=== PATIENT | male | born 1965 | race American Indian/Alaskan Native ===

== ENCOUNTER 2019-12-08 19:11 | Emergency (ER) | payer SELFPAY ==
--- NOTE | 2019-12-08 21:40 | Event Note ---
ED Screening Note Date of service: 12/08/19 Time: 21:33 ED Screening Note: This is 54 y.o. M. that presents to the ER with bilateral leg cramps for 2 days. PMH of HTN and brain aneurysm Currently taking amlodipine, labetalol, and atorvastatin Current cigarette and marijuana smoker. This initial assessment/diagnostic orders/clinical plan/treatment(s) is/are subject to change based on patients health status, clinical progression and re- assessment by fellow clinical providers in the ED. Further treatment and workup at subsequent clinical providers discretion. Patient/guardian urged not to elope from the ED as their condition may be serious if not clinically assessed and managed. Initial orders include: Labs
[2019-12-08 22:38] LABS: Albumin 4.5 g/dL (3.9-5); Calcium 9.4 mg/dL (8.4-10.2)
[2019-12-08] MEDS ORDERED: ACETAMINOPHEN 325 MG TAB PO STA (23:44)
[2019-12-08] MEDS ORDERED: IBUPROFEN 600 MG TAB PO ONE (23:44)
--- NOTE | 2019-12-08 23:50 | Emergency Department Report ---
ED General Adult HPI - General Chief complaint: Extremity Injury, Lower Stated complaint: LEG PAIN Time Seen by Provider: 12/08/19 21:32 Source: patient, RN notes reviewed Mode of arrival: Ambulatory Limitations: No Limitations - History of Present Illness Initial comments: Patient is a 54-year-old gentleman who is not known to this provider previously. He believes that he may have a history of high cholesterol. He is not sure of cholesterol medication he takes, but he believes it might be a statin medication. He does not know which medication specifically. He reports being on this medication 4 months and/or years. Presents to the ER with a complaint of nontraumatic bilateral quadricep pain and cramping, present for the past couple days. He did some heavy lifting 2 weeks ago. His pain has been present for 2-3 days. He denies additional injuries and additional complaints. There is no complaint of weakness and or numbness. There are no additional injuries. Cramping decreases with rest. It does not really have any exacerbating factors that he is aware of. He denies GI and symptoms. -: Gradual Location: left, right, lower extremity Quality: aching, other Consistency: intermittent Improves with: other Worsens with: other - Related Data Home Medications Medication Instructions Recorded Confirmed Last Taken amLODIPine [Norvasc] 10 mg PO DAILY 12/08/19 12/08/19 Unknown Allergies Allergy/AdvReac Type Severity Reaction Status Date / Time No Known Allergies Allergy Unverified 12/08/19 21:37 ED Review of Systems ROS: Stated complaint: LEG PAIN Other details as noted in HPI Constitutional: denies: fever Eyes: denies: eye discharge ENT: denies: congestion Respiratory: denies: wheezing Cardiovascular: denies: syncope Musculoskeletal: myalgia Neurological: denies: headache, weakness Hematological/Lymphatic: denies: easy bleeding ED Past Medical Hx - Past Medical History Previous Medical History?: Yes Hx Hypertension: Yes Additional medical history: Cerebral Aneurysm, High Cholesterol - Surgical History Past Surgical History?: Yes Additional Surgical History: Cerebral - Social History Smoking Status: Current Every Day Smoker Substance Use Type: Marijuana - Medications Home Medications: Home Medications Medication Instructions Recorded Confirmed Last Taken Type amLODIPine [Norvasc] 10 mg PO DAILY 12/08/19 12/08/19 Unknown History ED Physical Exam - General Limitations: No Limitations General appearance: alert, in no apparent distress - Head Head exam: Present: atraumatic, normocephalic - Eye Eye exam: Present: normal appearance, EOMI. Absent: nystagmus - ENT ENT exam: Present: normal exam, normal orophraynx, mucous membranes moist, nor mal external ear exam - Neck Neck exam: Present: normal inspection, full ROM. Absent: tenderness, meningismus - Respiratory Respiratory exam: Present: normal lung sounds bilaterally. Absent: respiratory distress - Cardiovascular Cardiovascular Exam: Present: regular rate, normal rhythm, normal heart sounds. Absent: bradycardia, tachycardia, irregular rhythm, systolic murmur, diastolic murmur, rubs, gallop - GI/Abdominal GI/Abdominal exam: Present: soft. Absent: distended, tenderness, guarding, rebound, rigid, pulsatile mass - Rectal Rectal exam: Present: deferred - Extremities Exam Extremities exam: Present: normal inspection, full ROM, other (2+ pulses noted in the bilateral upper and lower extremities. There is no long bony tenderness. The pelvis is stable. The muscular compartments are soft. There is no palpable cord.). Absent: pedal edema, calf tenderness - Back Exam Back exam: Present: normal inspection, full ROM. Absent: tenderness, CVA tenderness (R), CVA tenderness (L), paraspinal tenderness, vertebral tenderness - Neurological Exam Neurological exam: Present: alert, oriented X3, normal gait, other (The extraocular movements are intact bilaterally. There is no facial droop. The tongue is midline. Phonating in normal sentences. Hearing is intact grossly. Walking with a steady gait. 5/5 strength with 4 extremities. Sensation intact to light touch in 4 extremities. Appropriate thought content. GCS 15.). Absent: motor sensory deficit - Psychiatric Psychiatric exam: Present: normal affect, normal mood - Skin Skin exam: Present: warm, dry, intact, normal color. Absent: rash ED Course Vital Signs 12/08/19 12/09/19 19:35 00:11 Temperature 99.0 F 98.8 F Pulse Rate 92 H 89 Respiratory 18 18 Rate Blood Pressure 154/102 Blood Pressure 147/98 [Left] O2 Sat by Pulse 100 100 Oximetry - Reevaluation(s) Reevaluation #1: 12/09/19 00:09 Patient found out that he takes Lipitor. He also takes vitamin B and amlodipine. He is counseled to hold Lipitor at this time. He is given referrals to outpatient primary care doctors. ED Medical Decision Making - Lab Data Result diagrams: 12/08/19 21:48 Vital Signs 12/08/19 19:35 Temperature 99.0 F Pulse Rate 92 H Respiratory 18 Rate Blood Pressure 154/102 O2 Sat by Pulse 100 Oximetry - Medical Decision Making Differential diagnosis, including but not limited to: Myalgias, myositis, medication side effects Assessment and plan: 54-year-old gentleman with complaint of leg cramping. He is afebrile with reassuring vital signs, walks with a steady gait and is neurovascularly intact. His examination is not consistent with cellulitis, DVT, Homans sign, compartment syndrome, or any acute or emergent condition. His compartments are soft and supple. He is counseled to hold his cholesterol medication, drink plenty of water, will need to follow up with an outpatient primary care doctor, pain medication as needed [id number], return precautions are reviewed. Critical care attestation.: If time is entered above; I have spent that time in minutes in the direct care of this critically ill patient, excluding procedure time. ED Disposition Clinical Impression: Cramps, extremity, Elevated CK Disposition: - TO HOME OR SELFCARE Is pt being admited?: No Does the pt Need Aspirin: No Condition: Stable Additional Instructions: Please drink 4-6 cups of water per day, for the foreseeable future. Rest, avoid heavy lifting, and avoid strenuous physical activities, participate and lifting and activities as tolerated. Patient may take [id number] Tylenol, 650 mg by mouth, every 4-6 hours, alternating with Motrin, 600 mg by mouth with food, every 6 hours. The patient takes a cholesterol medication, such as simvastatin, atorvastatin, Lipitor, Crestor, recommend that patient hold cholesterol medication, and follow-up with a outpatient primary care doctor within 7-10 days for repeat checkup and/or evaluation. Return to emergency room right away with projectile vomiting, change in mental status, confusion, inability to tolerate liquid feeds, new, worsening or different symptoms not present on initial emergency room evaluation. Referrals: [facility] [Provider Group] - 7-10 days BLACK ULRICH MD [Staff Physician] - 7-10 days Forms: Work/School Release Form(ED)
[2019-12-09 00:20] VITALS: BP 147/98
== END 2019-12-09 00:14 | disposition home or self-care (01) ==
LOC: ED 19:11
DX: M79.662 Pain in left lower leg (principal); M79.661 Pain in right lower leg; R74.8 Abnormal levels of other serum enzymes; I10 Essential (primary) hypertension; F17.200 Nicotine dependence, unspecified, uncomplicated; F12.10 Cannabis abuse, uncomplicated
CPT/HCPCS: 36415; 80053; 82550; 99283

== ENCOUNTER 2020-05-12 10:19 | Emergency (ER) | payer SELFPAY ==
[2020-05-12 10:26] VITALS: BP 155/115
--- NOTE | 2020-05-12 11:13 | Emergency Department Report ---
Blank Doc - Documentation Documentation: 54-year-old male that presents with left upper abdominal pain with epigastric pain. This initial assessment/diagnostic orders/clinical plan/treatment(s) is/are subject to change based on patient's health status, clinical progression and re- assessment by fellow clinical providers in the ED. Further treatment and workup at subsequent clinical providers discretion. Patient/guardians urged not to elope from the ED as their condition may be serious if not clinically assessed and managed. Initial orders include: 1- Patient sent to [facility] for further evaluation and treatment 2- labs
[2020-05-12 11:43] LABS: Bacteria,Urine 1+ /HPF (Negative); Bilirubin,Urine NEG (Negative); Blood,Urine SM (Negative); Color,Urine Amber (Yellow); Hyaline Casts,Urine 5 /LPF; Mucus,Urine 2+ /HPF
[2020-05-12 12:25] LABS: Alanine Aminotransferase 31 units/L (7-56); Albumin 4.3 g/dL (3.9-5); BUN/Creatinine Ratio 9; Blood Urea Nitrogen 12 mg/dL (9-20); Calcium 9.4 mg/dL (8.4-10.2); Hemolysis Index 13
[2020-05-12 12:26] LABS: Basophils # (Auto) 0.1 K/mm3 (0.0-0.1); Basophils % (Auto) 1.1 % (0.0-1.8); Eosinophils # (Auto) 0.2 K/mm3 (0.0-0.4); Eosinophils % (Auto) 3.5 % (0.0-4.3); Hematocrit 42.9 % (35.5-45.6); Hemoglobin 14.4 gm/dl (11.8-15.2); Lymphocytes # (Auto) 1.2 K/mm3 (1.2-5.4); Lymphocytes % (Auto) 21.4 % (13.4-35.0); Mean Corpuscular HGB Conc 34 % (32-34); Mean Corpuscular Volume 96 fl (84-94); Monocytes # (Auto) 0.4 K/mm3 (0.0-0.8); Monocytes % (Auto) 7.3 % (0.0-7.3); Platelet Count 327 K/mm3 (140-440); Red Blood Count 4.45 M/mm3 (3.65-5.03)
--- NOTE | 2020-05-12 13:57 | Emergency Department Report ---
ED General Adult HPI - General Chief complaint: Abdominal Pain Stated complaint: ABD PAIN/CP Time Seen by Provider: 05/12/20 11:11 Source: patient Mode of arrival: Ambulatory Limitations: No Limitations - History of Present Illness Initial comments: Is a 54-year-old male with no prior medical history presents the ED complaining of left-sided abdominal flank pain for the past 2 weeks. Patient states that he has been having some nausea vomiting that resolved last week. Patient states due to his symptoms he has not been able to have him go to work this past week. Patient states he is needing to return to work in a work excuse. Patient denies diarrhea, fever, chills, shortness of breath or any other symptoms.. Patient states that pain is localized to his left flank area with no radiation elsewhere. Severity scale (0 -10): 8 - Related Data Home Medications Medication Instructions Recorded Confirmed Last Taken amLODIPine [Norvasc] 10 mg PO DAILY 12/08/19 12/08/19 Unknown Previous Rx's Medication Instructions Recorded Last Taken Type Ketorolac [Toradol] 10 mg PO Q6H PRN #20 tablet 05/12/20 Unknown Rx Allergies Allergy/AdvReac Type Severity Reaction Status Date / Time No Known Allergies Allergy Verified 05/12/20 10:21 ED Review of Systems ROS: Stated complaint: ABD PAIN/CP Other details as noted in HPI Comment: All other systems reviewed and negative ED Past Medical Hx - Past Medical History Hx Hypertension: Yes Additional medical history: Cerebral Aneurysm, High Cholesterol - Surgical History Additional Surgical History: Cerebral - Social History Smoking Status: Current Every Day Smoker Substance Use Type: Alcohol - Medications Home Medications: Home Medications Medication Instructions Recorded Confirmed Last Taken Type amLODIPine [Norvasc] 10 mg PO DAILY 12/08/19 12/08/19 Unknown History Ketorolac [Toradol] 10 mg PO Q6H PRN #20 tablet 05/12/20 Unknown Rx ED Physical Exam - General Limitations: No Limitations General appearance: alert, in no apparent distress - Head Head exam: Present: atraumatic, normocephalic - Eye Eye exam: Present: normal appearance - ENT ENT exam: Present: mucous membranes moist - Neck Neck exam: Present: normal inspection, full ROM - Respiratory Respiratory exam: Present: normal lung sounds bilaterally. Absent: respiratory distress, chest wall tenderness - Cardiovascular Cardiovascular Exam: Present: regular rate, normal rhythm, normal heart sounds. Absent: systolic murmur, diastolic murmur, rubs, gallop - GI/Abdominal GI/Abdominal exam: Present: soft, normal bowel sounds. Absent: distended, tenderness, guarding, rebound, rigid, hyperactive bowel sounds, hypoactive bowel sounds - Rectal Rectal exam: Present: deferred - Extremities Exam Extremities exam: Present: normal inspection, full ROM - Back Exam Back exam: Present: normal inspection - Neurological Exam Neurological exam: Present: alert, oriented X3 - Psychiatric Psychiatric exam: Present: normal affect, normal mood - Skin Skin exam: Present: warm, dry, intact, normal color. Absent: rash ED Course Vital Signs 05/12/20 10:25 Temperature 99.1 F Pulse Rate 97 H Respiratory 20 Rate Blood Pressure 155/115 [Right] O2 Sat by Pulse 97 Oximetry ED Medical Decision Making - Lab Data Result diagrams: 05/12/20 11:52 05/12/20 11:52 Laboratory Last Values WBC 5.5 K/mm3 (4.5-11.0) 05/12/20 11:52 RBC 4.45 M/mm3 (3.65-5.03) 05/12/20 11:52 Hgb 14.4 gm/dl (11.8-15.2) 05/12/20 11:52 Hct 42.9 % (35.5-45.6) 05/12/20 11:52 MCV 96 fl (84-94) H 05/12/20 11:52 MCH 32 pg (28-32) 05/12/20 11:52 MCHC 34 % (32-34) 05/12/20 11:52 RDW 14.0 % (13.2-15.2) 05/12/20 11:52 Plt Count 327 K/mm3 (140-440) 05/12/20 11:52 Lymph % (Auto) 21.4 % (13.4-35.0) 05/12/20 11:52 Mineral % (Auto) 7.3 % (0.0-7.3) 05/12/20 11:52 Eos % (Auto) 3.5 % (0.0-4.3) 05/12/20 11:52 Baso % (Auto) 1.1 % (0.0-1.8) 05/12/20 11:52 Lymph # 1.2 K/mm3 (1.2-5.4) 05/12/20 11:52 Mineral # 0.4 K/mm3 (0.0-0.8) 05/12/20 11:52 Eos # 0.2 K/mm3 (0.0-0.4) 05/12/20 11:52 Baso # 0.1 K/mm3 (0.0-0.1) 05/12/20 11:52 Seg Neutrophils % 66.7 % (40.0-70.0) 05/12/20 11:52 Seg Neutrophils # 3.7 K/mm3 (1.8-7.7) 05/12/20 11:52 Sodium 139 mmol/L (137-145) 05/12/20 11:52 Potassium 3.7 mmol/L (3.6-5.0) 05/12/20 11:52 Chloride 99.1 mmol/L (98-107) 05/12/20 11:52 Carbon Dioxide 28 mmol/L (22-30) 05/12/20 11:52 Anion Gap 16 mmol/L 05/12/20 11:52 BUN 12 mg/dL (9-20) 05/12/20 11:52 Creatinine 1.3 mg/dL (0.8-1.5) 05/12/20 11:52 Estimated GFR > 60 ml/min 05/12/20 11:52 BUN/Creatinine Ratio 9 % 05/12/20 11:52 Glucose 113 mg/dL (75-100) H 05/12/20 11:52 Calcium 9.4 mg/dL (8.4-10.2) 05/12/20 11:52 Total Bilirubin 0.60 mg/dL (0.1-1.2) 05/12/20 11:52 AST 26 units/L (5-40) 05/12/20 11:52 ALT 31 units/L (7-56) 05/12/20 11:52 Alkaline Phosphatase 59 units/L (35-129) 05/12/20 11:52 Total Protein 7.8 g/dL (6.3-8.2) 05/12/20 11:52 Albumin 4.3 g/dL (3.9-5) 05/12/20 11:52 Albumin/Globulin Ratio 1.2 % 05/12/20 11:52 Lipase 34 units/L (13-60) 05/12/20 11:52 Urine Color Kelly (Yellow) 05/12/20 11:24 Urine Turbidity Slightly-cloudy (Clear) 05/12/20 11:24 Urine pH 5.0 (5.0-7.0) 05/12/20 11:24 Ur Specific [place] 1.026 (1.003-1.030) 05/12/20 11:24 Urine Protein 100 mg/dl mg/dL (Negative) 05/12/20 11:24 Urine Glucose (UA) Neg mg/dL (Negative) 05/12/20 11:24 Urine Ketones Tr mg/dL (Negative) 05/12/20 11:24 Urine Blood Sm (Negative) 05/12/20 11:24 Urine Nitrite Neg (Negative) 05/12/20 11:24 Urine Bilirubin Neg (Negative) 05/12/20 11:24 Urine Urobilinogen 2.0 mg/dL (<2.0) 05/12/20 11:24 Ur Leukocyte Esterase Neg (Negative) 05/12/20 11:24 Urine WBC (Auto) 4.0 /HPF (0.0-6.0) 05/12/20 11:24 Urine RBC (Auto) 8.0 /HPF (0.0-6.0) 05/12/20 11:24 U Epithel Cells (Auto) 1.0 /HPF (0-13.0) 05/12/20 11:24 Urine Bacteria (Auto) 1+ /HPF (Negative) 05/12/20 11:24 Hyaline Casts 5 /LPF 05/12/20 11:24 Urine Mucus 2+ /HPF 05/12/20 11:24 - EKG Data EKG shows normal: sinus rhythm Rate: normal - EKG Data Interpretation: [facility] - Medical Decision Making This is a 54-year-old male who presents with flank pain most likely secondary to kidney stone or muscle strain . Patient is not suffering from any urinary symptoms. Urinalysis shows no acute findings other than calcium oxalate which may be indicative of a kidney stone. Patient's abdomen was nontender during examination so no new graft was needed. Discussed patient follow-up with GI. Vital signs are normal patient is in no acute distress. Nausea vomiting or diarrhea during ED stay. Critical care attestation.: If time is entered above; I have spent that time in minutes in the direct care of this critically ill patient, excluding procedure time. ED Disposition Clinical Impression: Flank pain Disposition: DC-01 TO HOME OR SELFCARE Is pt being admited?: No Does the pt Need Aspirin: No Condition: Stable Instructions: Flank Pain (ED), Kidney Stones (ED) Additional Instructions: Make sure to follow up with the primary care physician as discussed. Take all your medications as you've been prescribed. If you have any worsening symptoms or develop new symptoms please return to ED immediately. Prescriptions: Ketorolac [Toradol] 10 mg PO Q6H PRN #20 tablet PRN Reason: Pain Referrals: PRIMARY CARE, [Primary Care Provider] - 3-5 Days [facility] [Provider Group] - 3-5 Days [facility] [Outside] - 3-5 Days [facility] [Outside] - 3-5 Days Forms: Work/School Release Form(ED) Time of Disposition: 13:59
== END 2020-05-12 14:07 | disposition home or self-care (01) ==
LOC: ED 10:19
DX: R10.9 Unspecified abdominal pain (principal); F17.200 Nicotine dependence, unspecified, uncomplicated; E78.00 Pure hypercholesterolemia, unspecified; I10 Essential (primary) hypertension; Z79.899 Other long term (current) drug therapy; Z98.890 Other specified postprocedural states
CPT/HCPCS: 36415; 80053; 81001; 83690; 85025; 93005; 99283